=== PATIENT | male | born 1935 | race Caucasian/White ===

== ENCOUNTER → 2017-07-30 | Outpatient (CLI) | payer MEDICARE, OTHER | END | disposition home or self-care (01) | LOC: ECHO 09:37 | DX: I25.5 Ischemic cardiomyopathy (principal); I08.3 Combined rheumatic disorders of mitral, aortic and tricuspid valves | CPT/HCPCS: 93306 ==

== ENCOUNTER → 2017-11-18 | Outpatient (CLI) | payer MEDICARE, OTHER | END | disposition home or self-care (01) | LOC: ECHO 09:52 | DX: I50.20 Unspecified systolic (congestive) heart failure (principal); I08.2 Rheumatic disorders of both aortic and tricuspid valves; I42.9 Cardiomyopathy, unspecified | CPT/HCPCS: 93306 ==